=== PATIENT | male | born 1970 | race Caucasian/White ===

== ENCOUNTER 2019-08-11 18:06 | Observation (INO) ==
[2019-08-11] MEDS ORDERED: NORMAL SALINE 1,000 ML IV ONE ×2 (18:41→19:37)
[2019-08-11 18:58] LABS: Hemoglobin 13.9 gm/dL (13.5-18.0); Mean Cell Volume 82.6 fl (78-100); Mean Corpuscular Hemoglobin 28.7 pg (27-31); Mean Corpuscular Hgb Conc 34.8 g/dl (32-36); Mean Platelet Volume 9.7 fl (8-11.3); Neutrophil # 8.1 K/mm3 (1.3-6.0); Neutrophil % 75.4 % (42-75.0); Platelet Count 205 K/mm3 (150-450); Red Blood Count 4.84 M/mm3 (4.7-6.0); Red Cell Distribution Width 14.5 % (11.5-14.0); White Blood Count 10.8 K/mm3 (4.0-10.5)
[2019-08-11 19:00] LABS: Urine Bilirubin Negative (NEGATIVE); Urine Blood 25 /ul (NEGATIVE); Urine Ketone Negative (NEGATIVE); Urine Nitrite Negative (NEGATIVE); Urine Protein Negative (NEGATIVE); Urine Urobilinogen Normal (NORMAL); Urine pH 5.5 pH (5.0-7.0)
[2019-08-11] MEDS ORDERED: ASPIRIN 81 MG TAB.CHEW ONE (19:14)
[2019-08-11 19:15] LABS: ALT 47 U/L (19-67); AST 41 U/L (0-48); Albumin * 3.9 gm/dl (3.4-5.0); Alkaline Phosphatase * 150 U/L (50-170); Anion Gap 16.9 mmol/L (6.8-13.8); BUN/Creatinine Ratio 15.4 (9.0-21.6); Bilirubin, Total 0.7 mg/dL (0.0-1.1); Blood Urea Nitrogen 46 mg/dL (6-23); Ca. Corrected For Albumin 8.5 mg/dL (8.4-10.2); Calcium * 8.7 mg/dL (7.9-10.9); Carbon Dioxide 20.1 mmol/L (24-32.6); Chloride 100 mmol/L (97-106); Glucose * 117 mg/dL (70-110); Sodium 134 mmol/L (132-142); Total Protein 6.9 gm/dL (6.2-8.2); Troponin I Less than 0.017 ng/mL (0.00-0.10)
[2019-08-11 19:16] LABS: Urine Appearance Clear (CLEAR); Urine Bacteria 1+; Urine Color Yellow; Urine Fine Granular Cast 0-5 /LPF; Urine RBC TRACE /hpf (0-5); Urine WBC TRACE /hpf (0-5)
[2019-08-11] MEDS ORDERED: ASPIRIN 81 MG TAB.CHEW PO ONE (19:16)
--- NOTE | 2019-08-11 19:54 | ERNOTE ---
Medical Problem HPI - Narrative Date of Service: 08/11/19 - General Chief Complaint: Dyspnea Time Seen by Provider: 08/11/19 18:25 Source: patient, RN notes reviewed Exam Limitations: no limitations - Immun/Allergies/Home Medications Immunizations: IMMUNIZATION HX Immunizations Up to Date Yes History of Influenza Vaccine Yes Hx Pneumococcal Vaccination Yes Allergies/Adverse Reactions: Allergies ticagrelor [From Brilinta] Adverse Reaction (Verified 08/11/19 18:15) Home Medications: HOME MEDICATIONS Aspirin 81 mg PO HS 08/11/19 [Last Taken Unknown] Atorvastatin Calcium 40 mg PO HS 08/11/19 [Last Taken Unknown] Cholecalciferol [Vitamin D] 2,000 unit PO DAILY 08/11/19 [Last Taken Unknown] Clopidogrel Bisulfate [Plavix] 75 mg PO DAILY 08/11/19 [Last Taken Unknown] Indomethacin [Indocin] 25 mg PO TID PRN 08/11/19 [Last Taken Unknown] Lactobacillus 3/Fos/Pantethine [Probiotic & Acidophilus Cap] 100 unit PO DAILY 08/11/19 [Last Taken Unknown] Lisinopril 2.5 mg PO DAILY 08/11/19 [Last Taken Unknown] Omeprazole 40 mg PO DAILY 08/11/19 [Last Taken Unknown] Sertraline HCl [Zoloft] 100 mg PO DAILY 08/11/19 [Last Taken Unknown] - History of Present History Narrative: Damian is a 49-year-old male brought to the emergency department by ambulance for symptoms of heat exhaustion. 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 This afternoon he began experiencing some dizziness, muscle aches and then began having tunnel vision. He also reports having some nausea but no vomiting. He was given 2 L of fluid by EMS in route to the ER and states that he feels a little bit better. He states that he feels like he cannot take a full breath, but denies shortness of breath or chest pain. He denies any cough or fevers. Review of Systems - Review of Systems Constitutional: Present: fatigue, malaise. Absent: recent illness, fever EYE: Absent: eye pain, eye discharge ENT: Present: no symptoms reported Respiratory: Absent: shortness of breath, cough Cardiology: Absent: chest pain, palpitations Gastrointestinal/Abdominal: Present: nausea. Absent: vomiting, diarrhea, abdominal pain, drinking less Genitourinary: Absent: decreased urinary output Musculoskeletal: Present: muscle pain, joint pain Skin: Absent: rash, lesions Neurological: Present: dizziness/light-headedness. Absent: headache Endocrine: Present: no symptoms reported Hematologic/Lymphatic: Present: easy bruising, easy bleeding Psych: Present: no symptoms reported Medical History (Last Updated 08/11/19 @ 19:58 by Linnea Bustillos NP) High blood pressure Melanoma Surgical History: Surgical History (Last Reviewed 08/11/19 @ 20:52 by Linnea Bustillos NP) History of back surgery Hx of heart artery stent Hx of tonsillectomy Social History: (Last Reviewed 08/11/19 @ 20:52 by Linnea Bustillos NP) Social History: Marital status: Tobacco: Smoking Status: Former smoker Alcohol: alcohol intake: former Substance Use: substance use type: does not use Physical Exam - Physical Exam General Appearance: Present: wd/wn, alert, other - In no acute distress but appears to not feel well Head Exam: Present: normal inspection, no evidence of injury Eye Exam: Normal inspection: bilateral Neck: Present: normal inspection, nontender, supple Respiratory: Present: no respiratory distress, normal breath sounds, no accessory muscle use, lungs clear Cardiovascular/Chest: Present: regular rate, rhythm, no murmur Gastrointestinal/Abdominal: Present: nontender, nondistended, soft Extremity Exam: Present: normal inspection, non-tender, no edema Neurological Exam: Present: alert, oriented, normal mood/affect, no motor/sensory deficits Skin Exam: Present: warm/dry, other - Face flushed Progress - Results and Orders Patient's Lab Results:: I have reviewed the patient's lab results. - Vital Signs Patient's Vital Signs:: I have reviewed the patient's vital signs. Vital Signs: Vital Signs 08/11/19 18:09 08/11/19 18:33 08/11/19 18:45 Temperature 37.4 C Pulse Rate 83 88 78 Respiratory Rate 19 16 Blood Pressure 146/83 H 138/76 O2 Sat by Pulse Oximetry 98 96 08/11/19 19:15 08/11/19 19:28 Temperature Pulse Rate 77 80 Respiratory Rate 16 16 Blood Pressure 128/75 143/75 H O2 Sat by Pulse Oximetry 93 93 - EKG EKG #1 EKG: ST elevation EKG read: Reviewed by me - Progress/Reassessment Chief Complaint: Dyspnea Progress:: Improved Plan - Plan Plan: The patient's EKG showed ST elevation suggestive of an acute WI. He reported that his consumer experience consultant had told him and his that his EKG always looks a bnormal. I spoke with the patient's who then sent the patient a copy of his EKG on his phone. The ST elevation on his current EKG is similar to that of his baseline from July 2017 at which time he was asymptomatic. His troponin is negative. He is in acute renal failure despite having received 2 L of IV fluid prior to his labs being drawn. He does not recall any history of having any kidney problems other than some kidney stones in the remote past. he has a prescription for indomethacin for arthritis pain but rarely takes it. I spoke with Dr. Paez who agreed to admit the patient to observation status for IV fluids and further monitoring. I again spoke with the patient's . She had a copy of the patient's most recent routine lab work. At that time he had a BUN of 13 and a creatinine of 1.17. Departure Clinical Impression: Acute renal failure Qualifiers: Acute renal failure type: unspecified Qualified Code(s): N17.9 - Acute kidney failure, unspecified - Departure Disposition: Still a patient Condition: Stable
[2019-08-11] MEDS ORDERED: ACETAMINOPHEN 500 MG TABLET PO PRN (20:47)
[2019-08-11] MEDS ORDERED: ROSUVASTATIN CALCIUM 20 MG TABLET PO SCH (21:00)
[2019-08-11] MEDS ORDERED: ASPIRIN 81 MG TAB.CHEW PO SCH (21:00)
--- NOTE | 2019-08-11 21:06 | HP ---
Chief Complaint - Chief Complaint Date of Service: 08/11/19 Time of Service: 20:30 Chief Complaint: Dehydration, muscle soreness, weakness, headache, nausea History of Present Illness: Shukri Gordon is a 49-year-old male who presented to ER per EMS following a heat exhaustion and nearly heatstroke today. He was having extreme muscle pain in his legs and back. He was working delivering propane to tanks. His home is in [facility]. He has a past medical history of coronary disease and has had 4 stents placed. He had a myocardial infarction prior to the first stent being placed but has not had any further muscle damage since then. He has a history of mild hypertension, kidney stones, hyperlipidemia, and major depressive disorder. He takes a baby aspirin each day and Plavix each day. He also takes indomethacin which will be held given his renal status. Labs showed him to be very dry but his EGFR is 25, his BUN was 44 and creatinine is 2.96 with a BUN to creatinine ratio of 15. He received 2 L of IV fluid in route to the emergency room and I have continued it at 125 cc/h. His CK is elevated at 496. The urine is not showing any protein. He states that he is feeling about 60% better than he was earlier and all that has been done is rehydration. His twelve-lead EKG shows findings consistent with previous myocardial infarction. Hepatic function appears normal. CBC has a white count of 10,800 with essentially normal differential. The platelets and red cells are normal. Medical History (Last Updated 08/11/19 @ 19:58 by Linnea Bustillos NP) High blood pressure Melanoma Surgical History: Surgical History (Last Updated 08/11/19 @ 18:17 by Selene Jules RN) History of back surgery Hx of heart artery stent Hx of tonsillectomy Social History: (Last Reviewed 08/11/19 @ 20:52 by Linnea Bustillos NP) Social History: Marital status: Tobacco: Smoking Status: Former smoker Alcohol: alcohol intake: former Substance Use: substance use type: does not use Review Of Systems (GEN) - Review of Systems Generalized/Overall Review: Present: Weakness, Malaise, Fatigue EENTM: Present: No Symptoms Reported Respiratory: Present: No Symptoms Reported Cardiac: Present: No Symptoms Reported - He did report some mild chest discomfort earlier but that has passed with rehydration. Abdominal: Present: Nausea - He has some mild to moderate nausea without vomiting and that is better with rehydration. Genitourinary: Present: No Symptoms Reported, Oliguria - Now improving since rehydration. Musculoskeletal: Present: Muscle Pain - Especially in the thighs and back. He was spasming everywhere however. Neurological: Present: No Symptoms Reported, Depressed - He has a history of major depressive disorder treated with sertraline and he finds it effective. Skin: Present: No Symptoms Reported - He has a history of malignant melanoma that was surgically cured. Endocrine: Present: No Symptoms Reported Immunizations: IMMUNIZATION HX Immunizations Up to Date Yes History of Influenza Vaccine Yes Hx Pneumococcal Vaccination Yes Allergies/Adverse Reactions: Allergies Allergy/AdvReac Type Severity Reaction Status Date / Time ticagrelor [From Brilinta] AdvReac Verified 08/11/19 18:15 Home Medications: HOME MEDICATIONS Aspirin 81 mg PO HS 08/11/19 [Last Taken Unknown] Atorvastatin Calcium 40 mg PO HS 08/11/19 [Last Taken Unknown] Cholecalciferol [Vitamin D] 2,000 unit PO DAILY 08/11/19 [Last Taken Unknown] Clopidogrel Bisulfate [Plavix] 75 mg PO DAILY 08/11/19 [Last Taken Unknown] Indomethacin [Indocin] 25 mg PO TID PRN 08/11/19 [Last Taken Unknown] Lactobacillus 3/Fos/Pantethine [Probiotic & Acidophilus Cap] 100 unit PO DAILY 08/11/19 [Last Taken Unknown] Lisinopril 2.5 mg PO DAILY 08/11/19 [Last Taken Unknown] Omeprazole 40 mg PO DAILY 08/11/19 [Last Taken Unknown] Sertraline HCl [Zoloft] 100 mg PO DAILY 08/11/19 [Last Taken Unknown] Exam - Exam Vital Signs: Vital Signs - Last Taken Temp 37.4 C 08/11/19 20:25 Pulse 76 08/11/19 20:25 Resp 16 08/11/19 20:25 BP 144/82 H 08/11/19 20:25 Pulse Ox 94 08/11/19 20:25 Constitutional: Present: Alert, Oriented x3, Cooperative, Well developed, Well nourished, Mild distress ENT Exam: Present: normal ENT inspection, hearing grossly normal, pharynx normal, TMs normal Eye Exam: bilateral eye: normal inspection, PERRL, EOMI Neck: Present: non-tender, full range of motion, supple, normal inspection, trachea midline Back Exam: Present: normal inspection, no CVA tenderness, no vertebral tenderness Breasts: Present: Nontender Respiratory: Present: chest non-tender, lungs clear, normal breath sounds, no respiratory distress, no accessory muscle use Cardiovascular/Chest: Present: normal peripheral pulses, regular rate, rhythm, no chest tenderness, no edema, no gallop, no JVD, no murmur, no rub Peripheral Pulses: carotid (R): 2+, carotid (L): 2+, radial (R): 2+, radial (L): 2+ Abdomen: Present: Normal bowel sounds, soft, nontender, nondistended, no rebound tenderness, no hepatospenomegaly, no masses /Rectal: Present: Exam deferred Extremity: Present: normal range of motion, normal inspection, no pedal edema, no calf tenderness, normal capillary refill, leg cramps Skin Exam: Present: normal color, warm/dry, no cyanosis Lymphatic: Present: no adenopathy Neurologic: Present: label cutter II-XII nml as tested, normal cerebellar test, no motor/sensory deficits, alert, normal mood/affect, oriented x 3 Appearance: Present: appropriate appearance, appropriate insight, neat, no memory impairment Eye contact: Present: cooperative, good eye contact, normal speech Thoughts: Present: normal thought pattern, no apparent hallucination Diagnostic Studies: Abnormal Lab Results 08/11/19 08/11/19 08/11/19 Range/Units 18:46 18:51 18:51 WBC 10.8 H (4.0-10.5) K/mm3 Hct 40.0 L (42.0-52.0) % RDW 14.5 H (11.5-14.0) % Immature Gran # (Auto) 0.04 H (0.000-0.0310) K/mm3 Neutrophils % 75.4 H (42-75.0) % Lymphocytes % 14.7 L (20-51) % Neutrophils # 8.1 H (1.3-6.0) K/mm3 Potassium 3.0 L (3.4-4.6) mmol/L Carbon Dioxide 20.1 L (24-32.6) mmol/L Anion Gap 16.9 H (6.8-13.8) mmol/L BUN 46 H (6-23) mg/dL Creatinine 2.98 H (0.4-1.4) mg/dL Est GFR (Non-Af Amer) 24 L (60-130) mL/min Random Glucose 117 H (70-110) mg/dL Creatine Kinase (0-259) U/L Urine Blood 25 H (NEGATIVE) /ul Calcium Oxalate Crystal Moderate - 2+ H (NONE) /hpf Urine Bacteria 1+ H (NONE) Fine Granular Casts 0-5 H (NONE) /LPF 08/11/19 Range/Units 18:51 WBC (4.0-10.5) K/mm3 Hct (42.0-52.0) % RDW (11.5-14.0) % Immature Gran # (Auto) (0.000-0.0310) K/mm3 Neutrophils % (42-75.0) % Lymphocytes % (20-51) % Neutrophils # (1.3-6.0) K/mm3 Potassium (3.4-4.6) mmol/L Carbon Dioxide (24-32.6) mmol/L Anion Gap (6.8-13.8) mmol/L BUN (6-23) mg/dL Creatinine (0.4-1.4) mg/dL Est GFR (Non-Af Amer) (60-130) mL/min Random Glucose (70-110) mg/dL Creatine Kinase 498 H (0-259) U/L Urine Blood (NEGATIVE) /ul Calcium Oxalate Crystal (NONE) /hpf Urine Bacteria (NONE) Fine Granular Casts (NONE) /LPF Laboratory Results WBC 10.8 K/mm3 (4.0-10.5) H 08/11/19 18:51 RBC 4.84 M/mm3 (4.7-6.0) 08/11/19 18:51 Hgb 13.9 gm/dL (13.5-18.0) 08/11/19 18:51 Hct 40.0 % (42.0-52.0) L 08/11/19 18:51 MCV 82.6 fl (78-100) 08/11/19 18:51 MCH 28.7 pg (27-31) 08/11/19 18:51 MCHC 34.8 g/dl (32-36) 08/11/19 18:51 RDW 14.5 % (11.5-14.0) H 08/11/19 18:51 Plt Count 205 K/mm3 (150-450) 08/11/19 18:51 MPV 9.7 fl (8-11.3) 08/11/19 18:51 Immature Gran % (Auto) 0.40 % (0.001-0.429) 08/11/19 18:51 Immature Gran # (Auto) 0.04 K/mm3 (0.000-0.0310) H 08/11/19 18:51 Neutrophils % 75.4 % (42-75.0) H 08/11/19 18:51 Lymphocytes % 14.7 % (20-51) L 08/11/19 18:51 Monocytes % 8.7 % (0.0-9) 08/11/19 18:51 Eosinophils % 0.6 % (0.0-3.0) 08/11/19 18:51 Basophils % 0.2 % (0.0-1.0) 08/11/19 18:51 Nucleated RBC % 0.0 k/mm3 (0-1) 08/11/19 18:51 Neutrophils # 8.1 K/mm3 (1.3-6.0) H 08/11/19 18:51 Lymphocytes # 1.59 k/mm3 (1.5-3.5) 08/11/19 18:51 Monocytes # 0.9 k/mm3 (0.0-1.0) 08/11/19 18:51 Eosinophils # 0.1 k/mm3 (0.0-0.7) 08/11/19 18:51 Absolute Basophils 0.0 k/mm3 (0.0-0.1) 08/11/19 18:51 Sodium 134 mmol/L (132-142) 08/11/19 18:51 Plasma Sodium 134 mmol/L (130-142) 08/11/19 18:51 Potassium 3.0 mmol/L (3.4-4.6) L 08/11/19 18:51 Chloride 100 mmol/L (97-106) 08/11/19 18:51 Carbon Dioxide 20.1 mmol/L (24-32.6) L 08/11/19 18:51 Anion Gap 16.9 mmol/L (6.8-13.8) H 08/11/19 18:51 BUN 46 mg/dL (6-23) H 08/11/19 18:51 Creatinine 2.98 mg/dL (0.4-1.4) H 08/11/19 18:51 Est GFR (Non-Af Amer) 24 mL/min (60-130) L 08/11/19 18:51 BUN/Creatinine Ratio 15.4 (9.0-21.6) 08/11/19 18:51 Random Glucose 117 mg/dL (70-110) H 08/11/19 18:51 Calcium 8.7 mg/dL (7.9-10.9) 08/11/19 18:51 Calcium Adj for Albumin 8.5 mg/dL (8.4-10.2) 08/11/19 18:51 Total Bilirubin 0.7 mg/dL (0.0-1.1) 08/11/19 18:51 AST 41 U/L (0-48) 08/11/19 18:51 ALT 47 U/L (19-67) 08/11/19 18:51 Alkaline Phosphatase 150 U/L (50-170) 08/11/19 18:51 Creatine Kinase 498 U/L (0-259) H 08/11/19 18:51 Troponin I Less than 0.017 ng/mL (0.00-0.10) 08/11/19 18:51 Total Protein 6.9 gm/dL (6.2-8.2) 08/11/19 18:51 Albumin 3.9 gm/dl (3.4-5.0) 08/11/19 18:51 Urine Color Yellow 08/11/19 18:46 Urine Appearance Clear (CLEAR) 08/11/19 18:46 Urine pH 5.5 pH (5.0-7.0) 08/11/19 18:46 Ur Specific [place] 1.020 SP.GR. (1.005-1.030) 08/11/19 18:46 Urine Protein Negative mg/dL (NEGATIVE) 08/11/19 18:46 Urine Glucose (UA) Negative mg/dL (NEGATIVE) 08/11/19 18:46 Urine Ketones Negative mg/dL (NEGATIVE) 08/11/19 18:46 Urine Blood 25 /ul (NEGATIVE) H 08/11/19 18:46 Urine Nitrate Negative (NEGATIVE) 08/11/19 18:46 Urine Bilirubin Negative mg/dl (NEGATIVE) 08/11/19 18:46 Urine Urobilinogen Normal EU/dl (NORMAL) 08/11/19 18:46 Ur Leukocyte Esterase Negative /ul (NEGATIVE) 08/11/19 18:46 Urine RBC Trace /hpf (0-5) 08/11/19 18:46 Urine WBC Trace /hpf (0-5) 08/11/19 18:46 Ur Epithelial Cells Trace /hpf (0-5) 08/11/19 18:46 Calcium Oxalate Crystal Moderate - 2+ /hpf (NONE) H 08/11/19 18:46 Urine Bacteria 1+ (NONE) H 08/11/19 18:46 Fine Granular Casts 0-5 /LPF (NONE) H 08/11/19 18:46 Urine Culture Comments No culture indicated 08/11/19 18:46
[2019-08-12 06:29] LABS: Hematocrit 39.7 % (42.0-52.0); Hemoglobin 13.3 gm/dL (13.5-18.0); Mean Cell Volume 85.2 fl (78-100); Mean Corpuscular Hemoglobin 28.5 pg (27-31); Mean Corpuscular Hgb Conc 33.5 g/dl (32-36); Mean Platelet Volume 9.8 fl (8-11.3); Neutrophil # 6.1 K/mm3 (1.3-6.0); Neutrophil % 74.1 % (42-75.0); Platelet Count 189 K/mm3 (150-450); Red Blood Count 4.66 M/mm3 (4.7-6.0); Red Cell Distribution Width 14.7 % (11.5-14.0); White Blood Count 8.2 K/mm3 (4.0-10.5)
[2019-08-12 06:43] LABS: Albumin * 3.4 gm/dl (3.4-5.0); Anion Gap 12.4 mmol/L (6.8-13.8); Bilirubin, Total 0.6 mg/dL (0.0-1.1); Ca. Corrected For Albumin 8.5 mg/dL (8.4-10.2); Calcium * 8.3 mg/dL (7.9-10.9); Carbon Dioxide 23.4 mmol/L (24-32.6); Potassium 3.8 mmol/L (3.4-4.6); Total Protein 6.4 gm/dL (6.2-8.2)
[2019-08-12] MEDS ORDERED: PANTOPRAZOLE SODIUM 40 MG TABLET.EC PO SCH (07:00)
[2019-08-12] MEDS ORDERED: LACTOBACILLUS ACIDOPHILUS 1 EACH CAPSULE PO SCH (09:00)
[2019-08-12] MEDS ORDERED: CLOPIDOGREL BISULFATE 75 MG TABLET PO SCH (09:00)
[2019-08-12] MEDS ORDERED: LISINOPRIL 2.5 MG TABLET PO SCH (09:00)
[2019-08-12] MEDS ORDERED: SERTRALINE HCL 100 MG TABLET PO SCH (09:00)
--- NOTE | 2019-08-12 10:21 | DS ---
Date of Discharge:: 08/12/19 Hospital Course: Damian Gordon is a 49-year-old male admitted through the emergency room following a heat prostration event. Was extremely dehydrated and had a lot of muscle pain with headache and nausea on admission. He was brought by EMS and they started to IV sites 1 in each antecubital fossa and administered 2 L of fluid before he arrived in the ER. I continued his IV fluids at 125 cc/h but I see this morning that they are completed. His laboratory work on admission show that he was quite dehydrated but also probably a renal component to his renal insufficiency. His EGFR was 25 and his BUN to creatinine ratio was 15. This morning his EGFR is 46. We do not know his baseline. He has a history of kidney stones but he is not aware of anyone ever telling him he had renal insufficiency or renal failure in the past. This morning he is feeling much better. His muscle soreness is gone. He still is fatigued and feels weak but otherwise is much more comfortable. He has been up independently to the bathroom. He is eating well and the nausea is completely gone. Apparently, his employer is going to drive up from [facility] to pick him up. That is about a 5-[address]. He will probably need to stay here until they arrive. He is advised to see his physician in [place] within the next 2 weeks for recheck. He is asked that his hospital medical records to be sent to his physician in [place]. Procedures Performed: none Results and Findings: Lab Pending Results 08/11/19 18:46: Urine Color Yellow, Urine Appearance Clear, Urine pH 5.5, Ur Specific [place] 1.020, Urine Protein Negative, Urine Glucose (UA) Negative, Urine Ketones Negative, Urine Blood 25 H, Urine Nitrate Negative, Urine Bilirubin Negative, Urine Urobilinogen Normal, Ur Leukocyte Esterase Negative, Urine RBC Trace, Urine WBC Trace, Ur Epithelial Cells Trace, Calcium Oxalate Crystal Moderate - 2+ H, Urine Bacteria 1+ H, Fine Granular Casts 0-5 H, Urine Culture Comments No culture indicated 08/11/19 18:51: WBC 10.8 H, RBC 4.84, Hgb 13.9, Hct 40.0 L, MCV 82.6, MCH 28.7, MCHC 34.8, RDW 14.5 H, Plt Count 205, MPV 9.7, Immature Gran % (Auto) 0.40, Immature Gran # (Auto) 0.04 H, Neutrophils % 75.4 H, Lymphocytes % 14.7 L, Monocytes % 8.7, Eosinophils % 0.6, Basophils % 0.2, Nucleated RBC % 0.0, Neutrophils # 8.1 H, Lymphocytes # 1.59, Monocytes # 0.9, Eosinophils # 0.1, Absolute Basophils 0.0 08/11/19 18:51: Sodium 134, Plasma Sodium 134, Potassium 3.0 L, Chloride 100, Carbon Dioxide 20.1 L, Anion Gap 16.9 H, BUN 46 H, Creatinine 2.98 H, Est GFR (Non-Af Amer) 24 L, BUN/Creatinine Ratio 15.4, Random Glucose 117 H, Calcium 8.7, Calcium Adj for Albumin 8.5, Total Bilirubin 0.7, AST 41, ALT 47, Alkaline Phosphatase 150, Troponin I Less than 0.017, Total Protein 6.9, Albumin 3.9 08/11/19 18:51: Creatine Kinase 498 H 08/12/19 06:19: WBC 8.2 D, RBC 4.66 L, Hgb 13.3 L, Hct 39.7 L, MCV 85.2, MCH 28.5, MCHC 33.5, RDW 14.7 H, Plt Count 189, MPV 9.8, Immature Gran % (Auto) 0.40, Immature Gran # (Auto) 0.03, Neutrophils % 74.1, Lymphocytes % 16.2 L, Monocytes % 8.2, Eosinophils % 0.9, Basophils % 0.2, Nucleated RBC % 0.0, Neutrophils # 6.1 H, Lymphocytes # 1.32 L, Monocytes # 0.7, Eosinophils # 0.1, Absolute Basophils 0.0 08/12/19 06:19: ESR 9 08/12/19 06:19: Sodium 139, Plasma Sodium 139, Potassium 3.8 D, Chloride 107 H, Carbon Dioxide 23.4 L, Anion Gap 12.4, BUN 35 H, Creatinine 1.94 H D, Est GFR (Non-Af Amer) 39 L D, BUN/Creatinine Ratio 18.0, Random Glucose 107, Calcium 8.3, Calcium Adj for Albumin 8.5, Total Bilirubin 0.6, AST 38, ALT 40, Alkaline Phosphatase 125, Creatine Kinase 460 H, Total Protein 6.4, Albumin 3.4 Discharge Location: Home Disposition: Home self-care Condition: Good Face to Face Encounter completed per [facility] Guidelines: No Discharge Activity: Activity as tolerated Discharge Diet: General/regular food Complete Home Medications List: Complete Home Medication List: Aspirin 81 mg PO HS 08/11/19 Atorvastatin Calcium 40 mg PO HS 08/11/19 Cholecalciferol [Vitamin D] 2,000 unit PO DAILY 08/11/19 Clopidogrel Bisulfate [Plavix] 75 mg PO DAILY 08/11/19 Lactobacillus 3/Fos/Pantethine [Probiotic & Acidophilus Cap] 100 unit PO DAILY 08/11/19 Lisinopril 2.5 mg PO DAILY 08/11/19 Omeprazole 40 mg PO DAILY 08/11/19 Sertraline HCl [Zoloft] 100 mg PO DAILY 08/11/19 Acetaminophen [Tylenol] 500 mg PO Q4H PRN tab 08/12/19
[2019-08-12 11:07] VITALS: BP 109/64
[2019-08-12] MEDS ORDERED: ASPIRIN 81 MG TAB.CHEW PO SCH (21:00)
== END 2019-08-12 11:35 | disposition home or self-care (01) ==
LOC: ER 18:06 → MS 18:06
PROVIDERS: ADMIT Family Medicine; ATTEND Family Medicine
DX: T67.5XXA Heat exhaustion, unspecified, initial encounter; I10 Essential (primary) hypertension; R74.8 Abnormal levels of other serum enzymes; N17.9 Acute kidney failure, unspecified; F10.10 Alcohol abuse, uncomplicated; M79.10 Myalgia, unspecified site; E78.5 Hyperlipidemia, unspecified; E86.0 Dehydration; I25.10 Atherosclerotic heart disease of native coronary artery without angina pectoris; Z87.442 Personal history of urinary calculi
CPT/HCPCS: 36415; 80053; 81001; 82550; 84484; 85025; 85652; 93005; 96360; 96361; 99284; 99285; G0378